=== PATIENT | male | born 1960 | race Caucasian/White ===

== ENCOUNTER 2017-03-31 23:17 | Emergency (ER) | payer OTHER ==
[~2017-03-31] VITALS: Ht 177.8 cm; Wt 111.1 kg
[2017-03-31] MEDS ORDERED: TRAMADOL 50 MG50 MG (23:32)
[2017-03-31] MEDS ORDERED: VICODIN ES 7.51 EACH (23:33)
[2017-03-31] MEDS ORDERED: NORVASC5 MG (23:33)
[2017-03-31] MEDS ORDERED: PROMETHAZINE V473 ML PO (23:42)
[2017-03-31] MEDS ORDERED: DOXYCYCLINE MO100 M1 PO (23:42)
[2017-03-31] MEDS ORDERED: TESSALON PERLE100 MG PO (23:42)
[2017-03-31] MEDS ORDERED: CIPROFLOXIN HC2.5 M1 OTIC (23:50)
[2017-03-31 23:54] VITALS: BP 126/74
== END 2017-03-31 23:55 | disposition home or self-care (01) ==
LOC: M.ERS 23:17
DX: J20.9 Acute bronchitis, unspecified (principal); R04.2 Hemoptysis; I10 Essential (primary) hypertension; Z88.0 Allergy status to penicillin

== ENCOUNTER 2018-09-27 14:33 | Emergency (ER) | payer OTHER ==
[~2018-09-27] VITALS: Ht 177.8 cm; Wt 111.1 kg
[~2018-09-27 14:33] MED LIST: CIPROFLOXIN HC2.5 M1 OTIC; DOXYCYCLINE MO100 M1 PO; NORVASC5 MG; PROMETHAZINE V473 ML PO; TESSALON PERLE100 MG PO; TRAMADOL 50 MG50 MG; VICODIN ES 7.51 EACH
[2018-09-27 14:49] VITALS: BP 148/94
[2018-09-27] MEDS ORDERED: BACTRIM DS TAB1 EACH PO (15:34)
== END 2018-09-27 15:54 | disposition home or self-care (01) ==
LOC: M.ERS 14:33
DX: L03.116 Cellulitis of left lower limb (principal); L97.829 Non-pressure chronic ulcer of other part of left lower leg with unspecified severity; R60.0 Localized edema; I10 Essential (primary) hypertension; Z90.49 Acquired absence of other specified parts of digestive tract; Z96.653 Presence of artificial knee joint, bilateral

== ENCOUNTER 2019-01-13 14:22 | Emergency (ER) | payer OTHER ==
[~2019-01-13] VITALS: Ht 175.3 cm; Wt 106.6 kg
[~2019-01-13 14:22] MED LIST changes: +BACTRIM DS TAB1 EACH PO
[2019-01-13 14:31] VITALS: BP 136/76
== END 2019-01-13 14:51 | disposition home or self-care (01) ==
LOC: M.ERS 14:22
DX: M25.075 Hemarthrosis, left foot (principal); L97.529 Non-pressure chronic ulcer of other part of left foot with unspecified severity; I10 Essential (primary) hypertension; Z90.49 Acquired absence of other specified parts of digestive tract; Z96.653 Presence of artificial knee joint, bilateral; Z88.0 Allergy status to penicillin

== ENCOUNTER 2019-01-27 00:26 | Emergency (ER) | payer OTHER ==
[~2019-01-27] VITALS: Ht 177.8 cm; Wt 108.9 kg
[2019-01-27] MEDS ORDERED: NORCO 5-325 TA1 EAC1 PO (00:36)
[2019-01-27 01:06] LABS: ABSOLUTE BASOPHILS 0.1 thou/uL (0.0-0.2); ABSOLUTE EOSINOPHILS 0.3 thou/uL (0.0-0.7); ABSOLUTE LYMPHOCYTES 1.5 thou/uL (0.8-5.3); ABSOLUTE NEUTROPHILS 3.9 thou/uL (1.6-8.1); BASOPHILS 1.2 %; EOSINOPHILS 4.2 %; HEMATOCRIT 43.6 % (42.0-52.0); HEMOGLOBIN 14.7 gm/dL (14.0-18.0); LYMPHOCYTES 21.7 %; MCH 32.3 pg (26.0-34.0); MCHC 33.7 g/dL (28.0-37.0); MCV 95.8 fL (80.0-100.0); MONOCYTES 14.7 %; MPV 8.2 fl. (7.2-11.1); NUCLEATED RBCS 0 /100WBC; PLATELET COUNT* 254 thou/uL (150-400); POLYS 58.2 %; RBC 4.55 mil/uL (4.50-6.00); RDW-CV 14.2 % (10.5-14.5); WBC 6.8 thou/uL (4.0-11.0)
[2019-01-27 01:12] LABS: CALCIUM 8.4 mg/dL (8.5-10.1); CREATININE 1.3 mg/dL (0.6-1.3); POTASSIUM 3.9 mmol/L (3.5-5.1)
[2019-01-27 01:17] LABS: ALBUMIN 3.7 g/dL (3.4-5.0); TOTAL BILIRUBIN 0.2 mg/dL (<0.1-1.0); TOTAL PROTEIN 7.7 g/dL (6.4-8.2)
[2019-01-27] MEDS ORDERED: OXYCODON-ACETA1 EAC1 PO (04:12)
[2019-01-27 04:48] VITALS: BP 160/90
== END 2019-01-27 04:54 | disposition home or self-care (01) ==
LOC: M.ERS 00:26
PROVIDERS: Emergency Medicine
DX: L97.229 Non-pressure chronic ulcer of left calf with unspecified severity (principal); I10 Essential (primary) hypertension; Z90.49 Acquired absence of other specified parts of digestive tract; Z96.653 Presence of artificial knee joint, bilateral; Z88.0 Allergy status to penicillin

== ENCOUNTER 2020-10-28 13:15 | Emergency (ER) | payer OTHER ==
[~2020-10-28] VITALS: Ht 177.8 cm; Wt 106.1 kg
[~2020-10-28 13:15] MED LIST changes: +NORCO 5-325 TA1 EAC1 PO; +OXYCODON-ACETA1 EAC1 PO
[2020-10-28 13:26] VITALS: BP 168/96
[2020-10-28] MEDS ORDERED: CARVEDILOL25 MG PO (13:28)
[2020-10-28] MEDS ORDERED: TRAMADOL 50 MG50 MG PO (13:28)
== END 2020-10-28 14:07 | disposition home or self-care (01) ==
LOC: M.ERS 13:15
DX: Z20.822 Contact with and (suspected) exposure to COVID-19 (principal); I10 Essential (primary) hypertension; Z98.890 Other specified postprocedural states; Z79.899 Other long term (current) drug therapy; Z88.0 Allergy status to penicillin; Z90.49 Acquired absence of other specified parts of digestive tract